=== PATIENT | male | born 1955 | race Hispanic/Latino ===

== ENCOUNTER 2022-10-30 07:03 | Day surgery (SDC) | payer OTHER ==
[2022-10-28 11:24] LABS: BASOPHILS % (AUTO) 0.5 % (0.0-5.0); EOSINOPHILS % (AUTO) 3.6 % (0.0-8.0); LYMPHOCYTES % (AUTO) 31.8 % (21.0-51.0); MEAN CORPUSCULAR HEMOGLOBIN 30.5 pg (27.0-33.0); MEAN CORPUSCULAR HGB CONC 34.8 g/dL (32.0-36.0); MEAN CORPUSCULAR VOLUME 87.9 fL (79-99); MONOCYTES % (AUTO) 7.4 % (3.0-13.0); NEUTROPHILS % (AUTO) 56.5 % (40.0-77.0); PLATELET COUNT (AUTO) 198 K/uL (130-400); RED BLOOD CELL COUNT(AUTO) 4.78 MIL/uL (4.50-6.20); RED CELL DISTRIBUTION WIDTH 12.7 % (11.0-15.5); WHITE BLOOD COUNT (AUTO) 5.9 K/uL (4.8-10.8)
[2022-10-28 11:34] LABS: CREATININE 1.1 mg/dL (0.5-1.5); POTASSIUM 3.7 mmol/L (3.5-5.1)
[2022-10-28 15:52] VITALS: BP 109/69
[2022-10-30] VITALS (18 sets, daily range): BP systolic 88–129; BP diastolic 53–87
[~2022-10-30] VITALS: Ht 170.2 cm; Wt 98.5 kg
[~2022-10-30 07:03] MED LIST: AEC81 PO; ATOR10 PO; NAPR-1023 PO; OLME20TA22 PO
[2022-10-30] MEDS ORDERED: LACTATED RINGERS 1000ML 1,000 ML IV ONE (07:31)
[2022-10-30] MEDS: CEFTRIAXONE 1G VIAL ONE ×2 (08:03→09:31)
[2022-10-30] MEDS ORDERED: IOHEXOL-350 50ML VIAL IV ONE (08:40)
[2022-10-30] MEDS ORDERED: LIDOCAINE PF 100MG/5ML (2%) SYRINGE 5ML ONE (09:14)
[2022-10-30] MEDS ORDERED: SUCCINYLCHOLINE 200MG/10ML SYR ONE (09:14)
[2022-10-30] MEDS ORDERED: ONDANSETRON 4MG INJ ONE (09:14)
[2022-10-30] MEDS ORDERED: MIDAZOLAM HCL 1 MG/ML 2ML VIAL ONE (09:14)
[2022-10-30] MEDS ORDERED: DEXAMETHASONE SOD PHOSPHATE 10MG/ML 1ML VIAL ONE (09:14)
[2022-10-30] MEDS ORDERED: FENTANYL CITRATE PF 50 MCG/1 ML 2ML VIAL ONE (09:15)
[2022-10-30] MEDS ORDERED: PROPOFOL 10 MG/ML 20ML VIAL IV ONE (09:15)
[2022-10-30] MEDS ORDERED: LIDOCAINE HCL-MPF 2% 10ML AMP IJ ONE (09:21)
[2022-10-30] MEDS ORDERED: PHENAZOPYRIDINE HCL 200 MG TABLET ONE (11:00)
== END 2022-10-30 11:40 | disposition home or self-care (01) ==
LOC: DAH 07:03
PROVIDERS: ATTEND Urology
DX: N13.2 Hydronephrosis with renal and ureteral calculous obstruction (principal); Z20.822 Contact with and (suspected) exposure to COVID-19; I10 Essential (primary) hypertension; Z79.82 Long term (current) use of aspirin; Z79.01 Long term (current) use of anticoagulants; Z79.899 Other long term (current) drug therapy; Z98.890 Other specified postprocedural states
CPT/HCPCS: 80048; 85025; 87426; 36415; 93005; 52005; 74420; A6260; J7120 ×2; C1769; C1758; J3010; J0330; J1100; J2001; J0696; J2250; J2704; J2405; J3490; Q9967; A4358; A4215; A4223; A4222; A4221; A4663; A4510; A4600